=== PATIENT | female | born 1995 | race Hispanic/Latino ===

== ENCOUNTER 2017-08-01 23:44 | Emergency (ER) | payer BC ==
[2017-08-01] MEDS ORDERED: Ondansetron ODT 4 MG TAB ONE (23:56)
[2017-08-02 00:06] LABS: Bilirubin Small (Negative); Blood, Urine Negative (Negative); Glucose, Urine (Dipstick) Negative (Negative); Ketone, Urine 40 mg/dL (Negative); Nitrite Negative (Negative); Protein, Urine (Dipstick) Trace mg/dL (Neg-Trace); Urobilinogen 0.2 mg/dL (0.2-1.0)
== END 2017-08-02 00:55 | disposition home or self-care (01) ==
LOC: SCSER 23:44
DX: R11.2 Nausea with vomiting, unspecified (principal)
CPT/HCPCS: 81003; 81025; 99284; Q0162